=== PATIENT | male | born 2000 | race Caucasian/White ===

== ENCOUNTER 2022-11-15 12:36 | Observation (INO) | payer BC, SELFPAY ==
[2022-11-15] VITALS (13 sets, daily range): BP systolic 126–162; BP diastolic 67–115; PULSE 59–104; RESP 12–20; TEMP 36.5–37.1; O2SAT 93–99; BMI 31.6
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
--- NOTE | 2022-11-15 13:25 | DI.RAD_ITS ---
Exam(s) XR FOREARM RT XR ELBOW RT COMPLETE EXAM: XR FOREARM RT CLINICAL HISTORY: trauma. TECHNIQUE: 2D digital imaging was performed. Two views. COMPARISON: CR XR ELBOW RT COMPLETE from 11/15/2022 FINDINGS: BONES: There are transverse for fractures of the proximal 3rd of the radius and ulna. There is sever e displacement, more than a shaft with as well as angulation. Additional nondisplaced fractures seen in the mid shaft of the ulna. No bony destructive lesion is seen. Visualized portion of elbow and w rist joints are unremarkable. SOFT TISSUE: Swelling and skin debris. IMPRESSION: Displaced fractures of the proximal 3rd of the radius and ulna. DATA REPOSITORY: RADIATION DOSE DELIVERED:
[2022-11-15] MEDS: Ondansetron 4 MG/2 ML VIAL IVP (13:38)
[2022-11-15] MEDS: MORPHine 10 MG/ML VIAL 4 MG IVP (13:38)
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
--- NOTE | 2022-11-15 14:45 | DI.RAD_ITS ---
Exam(s) XR FOREARM RT EXAM: XR FOREARM RT CLINICAL HISTORY: Closed fracture of rt forearm TECHNIQUE: 2D and realtime digital imaging was performed. CONTRAST MATERIAL: Refer to procedure report. COMPARISON: CR XR ELBOW RT COMPLETE from 11/15/2022 FINDINGS: Fluoroscopy was provided for Dr. Brownlee during the performance of a reduction and internal fixation of the radial and ulnar fractures. Please refer to the procedure report for complete details. Ka,r=0.28 mGy IMPRESSION: RADIATION DOSE DELIVERED:
--- NOTE | 2022-11-15 14:46 | W.ANESPRE ---
General Info Date of Service Date Performed: 11/15/22 Height: 5 ft 8 in Weight: 94.347 kg Body Mass Index (BMI): 31.6 Surgical Procedure: Operation Date: 11/15/22 15:10 Proposed Procedure Side Surgeon p Wrist ORIF Forearm Akash Brownlee MD Meds Allergies and Home Medications Allergies Allergy/AdvReac Type Severity Reaction Status Date / Time No Known Allergies Allergy Unverified 11/15/22 12:51 Current Visit Medications: Current Medications Generic Name Dose Route Start Last Admin Trade Name Freq PRN Reason Stop Dose Admin Morphine Sulfate 4 mg 11/15/22 13:25 11/15/22 13:38 Morphine 10 Mg/Ml Vial IVP 4 mg DIRECTED PRN Administration PFSH Active Problems Active Problems: Problem Status Onset Code Closed fracture of right forearm 11/15/22 S52.91XA Closed left forearm fracture S52.92XA Abrasion of forearm, right S50.811A Vital Signs and Lab Results Vital Signs Most Recent Vital Signs in EMR: Most Recent Vital Signs Temp Pulse Resp BP Pulse Ox 36.9 C 59 L 20 162/115 H 93 11/15/22 12:36 11/15/22 12:36 11/15/22 12:36 11/15/22 12:36 11/15/22 12:36 Lab Results Blood Type / Crossmatch: No Data to Display Complete Blood Count: No Data to Display Complete Metabolic Panel: No Data to Display Liver Function Panel: No Data to Display Coagulation Panel: No Data to Display Cardiac Panel: No Data to Display Arterial Blood Gas: No Data to Display Venous Blood Gas: No Data to Display Pancreas Panel: No Data to Display Thyroid Panel: No Data to Display Infectious Disease: No Data to Display Blood Cultures: No Data to Display Toxicology Panel: No Data to Display Anesthesia Assessment and Plan Anesthesia History Personal History: No History of General Anesthesia Family History: No Family History of Anesthesia Complications Exercise Tolerance Exercise Tolerance: Metabolic Equivalents>4 Pertinent Negatives Pertinent Negatives: No Symptoms of GERD, No Major Cardiovascular Symptoms or Complaints and No Major Pulmonary Symptoms or Complaints Cardiac & Pulmonary Exam Cardiac Exam: Normal S1/S2 Heart Sounds Pulmonary Exam: Clear Bilateral Breath Sounds Implantable Cardiac Device Does patient have a Pacemaker or an ICD?: No Airway Exam Known Difficult Airway: No Mallampati Class: 1 Mouth Opening: Normal (> 3cm) Thyromental Distance: Greater than 3 cm Neck Range of Motion: Full ROM Neck Circumference: Normal Teeth Condition: Normal Dentition ASA Classification ASA Score: ASA 1 Emergency Case?: Yes NPO Status NPO Status: NPO Clear Liquids>2 hours and Full Stomach Anesthesia Plan Resuscitation Status: Full Code Anesthesia Technique: General Anesthesia Airway Planned: Endotracheal Tube Monitors Used: Standard Monitors and SedLine
[2022-11-15] MEDS: HYDROmorphone 2 MG/ML SYR 1 MG IVP (14:53)
[2022-11-15] MEDS: Lactated Ringers 1,000 ML 50 ML IV ×2 (15:25→16:05)
[2022-11-15] MEDS: ceFAZolin 2 GM/50 ML BAG 100 GM (16:05)
--- NOTE | 2022-11-15 16:08 | W.EDPROG ---
Date of service: 11/15/22 Time of Service: 16:08 Medical Decision Making I was asked to evaluate patient in the OR given concern for blood in G-tube output. Patient noted to have benign abdomen prior to initiation of procedure both by ED physician Dr. Botello and Dr. Brownlee. Patient noted to have no abdominal trauma. G-tube placed after intubation in the OR with notable pink output. Hemoccult testing performed on gastric output and negative. FAST exam was performed at request of Dr. Brownlee in the OR and negative for free fluid. I do not suspect gastric bleeding given Gastroccult negative and benign abdomen. Discharge Plan Disposition Condition: Stable Discharge Details Chief Complaint: Trauma Clinical Impression: Closed left forearm fracture, Abrasion of forearm, right Attending Provider: Akash Brownlee Primary Care Provider: Unknown,Unknown ED Provider: Julissa Botello
[2022-11-15] MEDS: Hydrogen Peroxide 3% 480 ML BTL (17:03)
--- NOTE | 2022-11-15 19:33 | W.PM.PROGNOT ---
Date of Service Date of service: 11/15/22 Time of Service: 19:33 Assessment and Plan Assessment and plan (1) Closed fracture of shaft of right radius and ulna: Status: Acute Assessment and plan: 21-year-old male postop day #0 status post right radius and ulnar shaft fracture ORIF with fasciotomies done for impending compartment syndrome Comfortable, still waking up from anesthesia, demonstrates weakly intact flexion extension of all digits. No distress. Dressing clean. Sensation intact with vaguely described paresthesias globally about the hand. Strict elevation right forearm at or above the level of the heart. Gentle range of motion wrist, hand, and elbow. Multimodal pain control as ordered. DVT prophylaxis with bilateral SCDs and ambulation. Anticipate discharge home after 24 hours of compartment monitoring, postoperative antibiotics, and anticipate dressing change tomorrow for drainage as incisions were only able to be closed widely. Discussed with patient's partner and mother (2) Traumatic compartment syndrome of right upper extremity: Status: Acute Objective Last Vital Signs Temp 98.4 F 11/15/22 12:36 Pulse 59 L 11/15/22 12:36 Resp 20 11/15/22 12:36 BP 162/115 H 11/15/22 12:36 Pulse Ox 93 11/15/22 12:36 PAWSS Have you Been Recently Intoxicated or Drunk Within the Last 30 days?: Yes Have you Ever Experienced Previous Episodes of Alcohol Withdrawal?: No Have you ever Experienced Withdrawal Seizures?: No Have you ever Experienced Delirium Tremens(DT)s?: No Have you ever undergone Alcohol Rehabilitation Treatment (i.e, inpt ot outpatient treatment programs)?: No Have you ever Experienced Blackouts?: No Have you ever Combined Alcohol with other Downers within the last 90 days?: No Have you ever Combined Alcohol with any other Substance of Abuse during the last 90 days?: No Result: 1 Time Spent with Patient Time Spent with Patient: <25 minutes Time was spent: indepentently interpreting results and counseling the patient
--- NOTE | 2022-11-15 19:38 | ROE_ITS ---
Date of service: 11/15/22 Time of Service: 16:00 Operative Note Operative Note DATE OF PROCEDURE: 11/15/22 PRE-OP DIAGNOSIS: 1. Right radius and ulnar shaft fractures 2. Impending forearm compartment syndrome POST-OP DIAGNOSIS: same PROCEDURE: 1. Right radius and ulnar shaft ORIF, CPT#94446 2. Decompressive fasciotomy: flexor and extensor compartments, CPT #98909 SURGEON: Akash Brownlee CAPONIZER: Lucila Teran ANESTHESIA TYPE: Local By Surgeon and General LMA/ETT Refer to Anesthesia Record ESTIMATED BLOOD LOSS: 20 PATHOLOGY: none sent TOURNIQUET TIME: 0 COMPLICATIONS: None Patient was transported to: PACU Patient's condition: stable Implants: Synthes 3.5mm LCP 6-hole radius, 10-hole ulna with 3.5mm cortex screws Indications: Please see complete medical record for details. Findings: Impending volar forearm compartment syndrome Procedure Description: In the operating room, general anesthesia was induced. Trauma work-up was compl eted with ultrasound fast exam done by Dr. Miller and gastric contents tested for blood, both test negative. Belly was soft. Pelvis stable. The patient was positioned supine on the operating room table. All bony prominences were well- padded. Preoperative antibiotics were administered. The right forearm was prepped and draped in the usual sterile fashion. The correct patient, procedure, and side of the procedure were all verified prior to incision. The right forearm swelling had been increasing dramatically. Especially the proximal volar compartments were now somewhat tense. The patient demonstrated significant discomfort based on vital signs and anesthetic requirement. The volar approach to the radius was taken. On incising the volar fascia, the flexor muscles essentially herniated out of the fascial rent. They were significantly swollen. The skin incision was extended appropriately proximally and distally and the decompressive fasciotomy completed with Metzenbaums scisso rs with the majority of the pathology being at and proximal to the fracture site superficially and deep. There was no necrotic muscle. The dorsal and mobile wad compartments were compressible so the volar surgery with continued. The radial shaft had partially lacerated the flexor pronator teres probably. The radial artery and radial sensory nerve were carefully mobilized and retracted radially. Care was taken to avoid any radial retractors around the proximal radial shaft to avoid the PIN. The forearm was maintained in the supinated position for the majority of the work. The bone ends were identified and reduced with bone clamps. There was a nice fracture nelson and the obliquity was secured with a lag screw. The patient's vital signs and comfort had improved dramatically following compartment release and provisional denominational of forearm length and stability. An appropriately length plate was chosen and slightly contoured to match the radial bow. The lag screw removed and the plate placed on the volar aspect of the radial shaft, secured and centered with bone clamps, and the lag screw replaced with a slightly longer length. An additional cortex screw was placed proximally and distally to secure the plate to the bone. Visual inspection and fluoroscopy used to confirm appropriate placement reduction, and the remainder of the screw holes filled to complete the construct . An initial most proximal screw was exchanged for shorter version Norma plate was more secured to the bone. The direct ulnar approach was then taken to the segmental ulnar shaft fractures. The dorsal fascia was opened and released appropriately far proximal to distal as needed to complete compartment release as well as fixate the multiple aspects of this fracture. Muscle was elevated off the dorsal aspect of the bone. The proximal fracture site was comminuted, multiple butterfly and small pieces were incorporated with small bone clamps and the reduction was quite good. The distal fracture remained nondisplaced. An appropriately long plate was selected and again slightly contoured to match patient anatomy. It was provisionally secured to the dorsal aspect of the ulna with clamps and then with cortex screws starting between and then proximal and distal to the different fracture sites. Provisional inspection and fluoroscopy confirmed appropriate placement and reduction. An appropriate number of bicortical cortex screws were placed for a total of 3 proximal to the most proximal fracture, 2 between the fractures, and 2 most distal. Final fluoroscopy was obtained showing appropriate screw lengths, plate placement, and excellent fracture reduction alignment. Radial artery remained protected as did the radial sensory nerve. The dorsal compartments were moderately swollen. The volar muscle had improved with elevation during the ulna surgery as well as with stabilization and denominational of length. Options were considered for wound VAC placement and skin grafting versus attempted closure. Patient vitals showed good comfort. Given young age, decision was made to attempt primary closure to avoid undue wounds. Compartments were left open. The volar subcutaneous tissue was closed using 2-0 Monocryl buried interrupted and skin with running 3-0 horizontal mattress with central escape stitch as needed for removal or if to tight and painful during postoperative monitoring. The skin was reasonably approximated with about a 1 cm overall. The dorsal incision was similarly closed with a relatively loose but reasonable approximation. Compartments were inspected and compressible. Muscle was not tense during the superficial layer closure. Radial pulse was readily palpable. Xeroform applied over both incisions as well as the volar proximal road rash skin abrasions. Gauze over the top followed by sterile soft roll and a very gently placed a 6 loose bandage from the hand to the arm. The patient awoke from anesthesia without complication and was transferred to the recovery room in a stable condition.
--- NOTE | 2022-11-15 19:38 | W.PM.DS.N ---
Date of service: 11/16/22 Time of Service: 14:39 DS: Diagnosis Discharge Diagnosis (1) Closed fracture of shaft of right radius and ulna: Status: Acute (2) Traumatic compartment syndrome of right upper extremity: Status: Acute Discharge Plan Disposition Patient Disposition: Home Condition: Stable Discharge Details Reason For Visit: Right Radius & Ulna Shaft FXs Admit Date/Time: 11/15/22 19:21 Admit Provider: Akash Brownlee Attending Provider: Akash Brownlee Primary Care Provider: Unknown,Unknown Home Meds and New Rx's Prescriptions: New aspirin 81 mg Tablet,Delayed Release (Dr/Ec) 81 mg PO DAILY 7 Days Qty: 7 0RF naproxen 250 mg Tablet 250 - 500 mg PO BID PRN PRN (Reason: for moderate to severe pain) Qty: 40 0RF oxycodone 5 mg Tablet 5 - 15 mg PO Q4H PRN MDD 30mg PRN (Reason: for moderate to severe pain) Qty: 30 0RF oxycodone [OxyContin] 10 mg Tablet,Oral Only,Ext.Rel.12 Hr 10 mg PO Q12H 3 Days Qty: 6 0RF Discharge Instructions Instructions: Arm Fracture in Adults (DC), Compartment Syndrome (DC), ORIF of an Arm Fracture (DC) Additional Instructions: Surgery 11/15/22 Right radius and ulnar shaft fracture ORIF with fasciotomies done for impending compartment syndrome Activity: Strict elevation right forearm at or above the level of the heart to minimize swelling. Support on pillows. Gently encourage increasing range of motion elbow, wrist, and hand fingers to prevent stiffness. Nonweightbearing right forearm. Prescriptions: Aspirin 81 mg take 1 daily to prevent a blood clot for 1 week Naproxen 250 mg take 1-2 every 12 hours with a meal as needed for moderate pain Oxycodone immediate release 5 mg take 1-3 every 4-6 hours as needed for severe pain Oxycodone extended release 10 mg take 1 every 12 hours for up to 3 days to control pain You may use [id number] Tylenol (acetaminophen) as needed for mild pain. These pain medications may be taken all at once or in different combinations as needed. Also, recommend Colace (docusate) as a stool softener as surgery and pain medicine cause constipation. You may try njop-aah-ezsyudk diphenhydramine (Benadryl) 25-50 mg nightly as a sleep aid Dressings: Please change dressing daily with Xeroform, gauze, and gently wrap/secured with Misha bandages. Follow-up: 10-[address] Brownlee You may take off the leg compression stockings this evening at home. You may also leave them on a few days longer if you have a history of leg swelling or edema. Let us know right away if you develop any redness, drainage, fevers, chest pain, or trouble breathing. Do not drink alcohol or drive for at least 24 hours after anesthesia. Please call the office during business hours with any questions or concerns. Stand Alone Forms: Nursing Discharge Form Referrals: Akash Brownlee MD [ [facility] ST[facility]FF [facility]YSICIAN] - 11/21/22 3:00 pm Activity:: Activity as Tolerated Equipment/Supplies:: Dressing supplies Diet:: Normal Diet Discharge Orders Discharge Orders: Discharge Order (Routine); Ordered 11/16/22 Ordered By: Lucila Teran DS: Summary Time Spent with Patient providing and/or coordinating discharge services: Less than 30 minutes Status at Discharge Functional status at discharge: independent ambulation Overall status at discharge: patient is progressing back to baseline Mental Status: mental status grossly normal Speech and Movement: speech and movement normal Mood: congruent mood Affect: normal affect Exam Narrative Exam Narrative: Patient resting in bed with no signs of acute distress. Right forearm resting on pillow with dressing intact. Dressing was taken down. Abrasion of the antecubital fossa and volar surface of the proximal forearm. Incisions without any signs of infection. Compartments compressible. Patient participates in dressing change with no discomfort. Demonstrates active motion of the wrist, elbow, and shoulder. Motor function of the median, ulnar, and radial nerves, intact. Sensation intact to light touch in the median and ulnar nerve distributions. Altered sensation improving in the radial nerve distribution. 2+ radial pulse. Psych Mental Status: mental status grossly normal Speech and Movement: speech and movement normal Mood: congruent mood Affect: normal affect DS: Data Vitals/I&O Vitals and I&O: Vital Signs Temperature 98.4 F 11/15/22 12:36 Pulse 59 L 11/15/22 12:36 Respiratory Rate 20 11/15/22 12:36 Respiratory Effort Normal, Non-Labored 11/15/22 12:48 Respiratory Depth Normal 11/15/22 12:44 Blood Pressure 162/115 H 11/15/22 12:36 Pulse Oximetry 93 11/15/22 12:36 Pain Level 8 11/15/22 14:53 Intake & Output 11/14/22 11/15/22 11/15/22 23:59 11:59 23:59 Intake Total 1600 / 1600 Output Total 400 / 400 Balance 1200 / 1200 Weight 208 lb Intake: IV 1600 / 1600 Output: Urine 400 / 400 Other: Urine Color Yellow Urine Appearance Clear PFSH All Active Problems (Updated 11/15/22 @ 19:35 by Akash Brownlee MD) Traumatic compartment syndrome of right upper extremity (Acute) Closed fracture of shaft of right radius and ulna (Acute 11/15/22) Abrasion of forearm, right (Acute) Social History Smoking/Tobacco Use Status: Never Smoking risk assessment performed?: Yes Alcohol Intake: current Alcohol Intake frequency: a few times a month Alcohol type: hard liquor Drug use: Occasionally Substance use type: marijuana Do you feel safe at home: Yes Do you feel safe in your relationship?: Yes Time Spent with Patient Time Spent with Patient: <45 minutes Time was spent: obtaining and/or reviewing separately otained hiistory, ordering medications,tests, procedures, counseling the patient and care coordination
--- NOTE | 2022-11-15 20:26 | W.ANESPOSTOP ---
Postoperative Evaluation Date, Time and Location Date Performed: 11/15/22 Time Performed: 20:26 Patient Location: PACU Vital Signs Most Recent Imported Vital Signs: Most Recent Vital Signs Temp Pulse Resp BP Pulse Ox 36.5 C 77 12 126/67 97 11/15/22 20:17 11/15/22 20:17 11/15/22 20:17 11/15/22 20:17 11/15/22 20:17 Pain Score Most Recent Pain Score: Most Recent Pain Score Pain Level 0 11/15/22 20:24 Pain score in PACU Assessment Mental Status: Arousable with meaningful communication Airway and Respiratory Function: Patent airway with normal (patient baseline) respiratory exam Cardiovascular Function: Hemodynamically Stable Hydration Status: Adequately Hydrated Nausea & Vomiting: No Nausea or Vomiting Pain: Pt. Denies Any Pain Peripheral Nerve Block: Patient did not receive a nerve block
--- NOTE | 2022-11-15 20:28 | W.ANESPOSTOP ---
Postoperative Evaluation Date, Time and Location Date Performed: 11/15/22 Time Performed: 20:23 Patient Location: PACU Vital Signs Most Recent Imported Vital Signs: Most Recent Vital Signs Temp Pulse Resp BP Pulse Ox 36.5 C 77 12 126/67 97 11/15/22 20:17 11/15/22 20:17 11/15/22 20:17 11/15/22 20:17 11/15/22 20:17 Most Recent Vital Signs Temp Pulse Resp BP Pulse Ox 36.5 C 77 12 126/67 97 11/15/22 20:17 11/15/22 20:17 11/15/22 20:17 11/15/22 20:17 11/15/22 20:17 Pain Score Most Recent Pain Score: Most Recent Pain Score Pain Level 0 11/15/22 20:23 Assessment Mental Status: Arousable with meaningful communication Airway and Respiratory Function: Patent airway with normal (patient baseline) respiratory exam Cardiovascular Function: Hemodynamically Stable Hydration Status: Adequately Hydrated Nausea & Vomiting: No Nausea or Vomiting Pain: Pt. Denies Any Pain Peripheral Nerve Block: Patient did not receive a nerve block
[2022-11-15] MEDS: ceFAZolin 1 GM/50 ML BAG IVPB (21:00)
[2022-11-15] MEDS: Naproxen 250 MG TAB PO (21:28)
[2022-11-15] MEDS: MORPHine 10 MG/ML VIAL IVP ×2 (21:29→23:50)
[2022-11-15] MEDS: oxyCODONE 5 MG TAB PO (22:29)
[2022-11-16 00:03] VITALS: O2SAT 94
[2022-11-16 01:03] VITALS: O2SAT 96
[2022-11-16] MEDS: MORPHine 10 MG/ML VIAL IVP ×5 (02:19→14:13)
[2022-11-16] MEDS: oxyCODONE 5 MG TAB PO ×3 (04:06→16:05)
[2022-11-16] MEDS: ceFAZolin 1 GM/50 ML BAG IVPB ×2 (04:52→12:05)
[2022-11-16] MEDS: Naproxen 250 MG TAB PO (06:50)
[2022-11-16] MEDS: Normal Saline Flush 10 ML SYR IVP ×3 (07:55→16:42)
[2022-11-16] MEDS: Lactated Ringers 1,000 ML 30 ML IV (10:12)
[2022-11-16 11:19] VITALS: BP 116/67; PULSE 67; TEMP 36.8; O2SAT 93
[2022-11-16] MEDS: oxyCODONE-CR 10 MG TABCR PO (12:06)
[2022-11-16] MEDS: Acetaminophen 500 MG TAB 1000 MG PO (16:04)
[2022-11-16] MEDS: Ondansetron 4 MG/2 ML VIAL IVP (16:42)
== END 2022-11-16 17:57 | disposition home or self-care (01) ==
LOC: ER 14:37 → DSU 15:15 → SUR 15:25 → MS 20:41
PROVIDERS: Admitting Provider Student in an Organized Health Care Education/Training Program; Emergency Provider Emergency Medicine Emergency Medical Services; Visit Provider Student in an Organized Health Care Education/Training Program
PROC: (CPT 25575; principal; 2022-11-15 15:00)
DX: S52.321A Displaced transverse fracture of shaft of right radius, initial encounter for closed fracture (principal); S52.26 Segmental fracture of shaft of ulna; V86.65XA Passenger of 3- or 4- wheeled all-terrain vehicle (ATV) injured in nontraffic accident, initial encounter; T79.A11A Traumatic compartment syndrome of right upper extremity, initial encounter
CPT/HCPCS: 25575; 25024; 96361; 96365; 96366; 96374; 96375; 96376; 99285; 73080; 73090; G0378; J0131; J0690; J1100; J1170; J2001; J2250; J2270; J2405; J2704; J3010; J3475

== ENCOUNTER 2022-11-28 15:32 | Outpatient (CLI) | payer BC, SELFPAY ==
--- NOTE | 2022-11-28 15:00 | DI.RAD_ITS ---
Exam(s) XR FOREARM RT EXAM: XR FOREARM RT INDICATION: FOREARM F/U. COMPARISON: XA XR FOREARM RT from 11/15/2022 TECHNIQUE: 2D digital imaging was performed. Two views. FINDINGS: Fixation plates are again noted in the mid radius and ulna. No change in fracture or hardware alignm ent. Soft tissue swelling remains present. DATA REPOSITORY: RADIATION DOSE DELIVERED:
== END 2022-11-28 15:33 | disposition home or self-care (01) ==
LOC: DIORS 15:33
PROVIDERS: Visit Provider Student in an Organized Health Care Education/Training Program
DX: S52.26 Segmental fracture of shaft of ulna (principal); S52.321D Displaced transverse fracture of shaft of right radius, subsequent encounter for closed fracture with routine healing; X58.XXXD Exposure to other specified factors, subsequent encounter
CPT/HCPCS: 73090

== ENCOUNTER 2022-11-29 11:43 | Day surgery (SDC) | payer BC, SELFPAY ==
[2022-11-29] VITALS (8 sets, daily range): BP systolic 92–141; BP diastolic 28–75; PULSE 55–81; RESP 16–21; TEMP 36.4–37.2; O2SAT 95–98; BMI 30.6
--- NOTE | 2022-11-29 07:37 | PDOC.DSDIS_ITS ---
Date of service: 11/29/22 Time of Service: 17:00 Discharge Plan Disposition Patient Disposition: Home Discharge Details Attending Provider: Akash Brownlee Primary Care Provider: Tamanna,Local Home Meds and New Rx's Prescriptions: New naproxen 250 mg tablet 250 - 500 mg PO BID PRNQty: 40 0RF Rx Instructions: take with a meal oxycodone 5 mg tablet 5 - 10 mg PO Q4H MDD 30 mg PRN (Reason: moderate to severe pain) Qty: 18 0RF Bio-K plus 50 billion cell capsule,delayed release(DR/EC) 1 cap PO DAILY 14 Days Qty: 14 0RF Continued naproxen 250 mg Tablet 250 - 500 mg PO BID PRN PRN (Reason: for moderate to severe pain) Qty: 40 0RF acetaminophen 500 mg Tablet 500 - 1,000 mg PO DIRECTED escitalopram oxalate 10 mg tablet 10 mg PO DAILY Patient Comments: TAKE 1 TABLET BY MOUTH EVERY DAY Discontinued acetaminophen [Tylenol] 325 mg tablet 325 mg PO ONCE PRN Discharge Instructions Additional Instructions: Surgery: Right forearm fasciotomies secondary wound closure Activity: Nonweightbearing right upper extremity. Recommend elevation to minimize swelling discomfort. Encourage increasing range of motion about the elbow wrist hand and fingers to prevent stiffness and increase circulation. Use removable wrist brace to prevent wrist drop. Should remove multiple times each day and perform active assisted and active wrist extension as instructed in the office. A paper hand therapy prescription will be provided to start ideally next week. Prescriptions: Naproxen 250 mg take 1-2 every 12 hours with a meal as needed for moderate pain Oxycodone 5 mg take 1-2 every 4-6 hours as needed for severe pain You may use wrka-tst-zlblcwy Tylenol (acetaminophen) as needed for mild pain. These pain medications may be taken all at once or in different combinations as needed. Also, recommend Colace (docusate) as a stool softener as surgery and pain medicine cause constipation. You may try zzpv-svi-gltfjbf diphenhydramine (Benadryl) 25-50 mg nightly as a sleep aid Dressings: Loosen/adjust Misha bandage as needed for comfort. Keep entire dressing in place for 5 days. May then remove gauze, remove Xeroform, but leave the Steri-Strips in place until follow-up. Cover the incisions with wide Band- Aids or leave exposed to air. May apply bacitracin to road rash. May shower after 7 days. Follow-up: 10-[address] Brownlee or with a local orthopedic surgeon. You may take off the leg compression stockings this evening at home. You may also leave them on a few days longer if you have a history of leg swelling or edema. Let us know right away if you develop any redness, drainage, fevers, chest pain, or trouble breathing. Do not drink alcohol or drive for at least 24 hours after anesthesia. Please call the office during business hours with any questions or concerns. Discharge Orders Discharge Orders: Discharge Order (Routine); Ordered 11/29/22 Ordered By: Akash Brownlee DS: Diagnosis Discharge Diagnosis (1) Traumatic compartment syndrome of right upper extremity: Status: Acute (2) Closed fracture of shaft of right radius and ulna: Status: Acute
--- NOTE | 2022-11-29 07:38 | ROE_ITS ---
Date of service: 11/29/22 Time of Service: 15:00 Operative Note Operative Note DATE OF PROCEDURE: 11/29/22 PRE-OP DIAGNOSIS: Right forearm fasciotomies with partial wound closure POST-OP DIAGNOSIS: same PROCEDURE: Right forearm secondary wound closure, Radial fasciotomy, CPT# 54637 and Ulnar fasciotomy, CPT# 05160 SURGEON: Akash Brownlee ANESTHESIA TYPE: Local By Surgeon and General LMA/ETT Refer to Anesthesia Record ESTIMATED BLOOD LOSS: 5 COMPLICATIONS: None Patient was transported to: PACU Patient's condition: stable Indications: Please see complete medical record for details. Procedure Description: In the operating room, general anesthesia was induced. The patient was positioned supine on the operating room table. All bony prominences were well- padded. Preoperative antibiotics were administered. The left forearm was prepped and draped Betadine scrub and then Betadine paint. The correct patient, procedure, and side of the procedure were all verified prior to incision. The forearm had soft compartments. Radial pulse was 2+. The prior radial and ulnar fasciotomy incisions were inspected. There was excellent granulation tissue base with about a 1 cm margin of widening between skin edges. No signs of infection. The nylon retention sutures were removed. The wounds were each thoroughly scrubbed with Betadine soaked sponges. Suture removal instruments, gloves, and drapes were passed off and new ones used for the remainder of the case. Starting with the radial wound, which measured about 17 cm in length with areas of about 5 mm to 15 mm widening, a 15 blade was used to lightly debride and resect the central subcutaneous tissue bed as well as mobilize the soft tissue margins and allow for subcuticular skin edge reapproximation without much tension. This debridement and soft tissue mobilization was repeated for the ulnar mood, which measured about 14 cm in length and had areas of about 8-18 mm widening. Both freshened wounds were irrigated with normal saline. Starting with the radial wound, a 3-0 Monocryl running subcuticular stitch was used to close the skin edges. Next, 3-0 Monocryl running subcu stitch was also used to close the ulnar wound. Both wounds closed very nicely without concerns of skin tension or nonviable tissue. The forearm was washed with saline and then dried. Hemostasis was appropriate. Steri-Strips were applied across the ulnar wound. They were also applied across the radial wound avoiding the medium to large areas of skin abrasions centrally and proximally toward the antecubital crease. Xeroform was applied over the length of both closed wounds and wider places placed over the proximal volar radial forearm skin abrasion and the antecubital elbow. Gauze was placed over both wounds, sterile soft roll wrap to secure the sterile dressing. Gentle compressive Misha bandage was applied from the hand wrist and forearm and then from the forearm up past the elbow to the arm. Cock up wrist brace was then fit over the bandage on the wrist. The patient awoke from anesthesia without complication and was transferred to the recovery room in a stable condition.
--- NOTE | 2022-11-29 13:11 | W.ANESPRE ---
General Info Date of Service Date Performed: 11/29/22 Height: 5 ft 9 in Weight: 94 kg Body Mass Index (BMI): 30.6 Surgical Procedure: Operation Date: 11/29/22 14:40 Proposed Procedure Side Surgeon p Forearm Complex Wound Closure Right Akash Brownlee MD Meds Allergies and Home Medications Allergies Allergy/AdvReac Type Severity Reaction Status Date / Time No Known Allergies Allergy Unverified 11/29/22 13:35 Home Medication Medication Instructions Recorded naproxen 250 mg tablet 250 - 500 mg PO BID PRN PRN for 11/16/22 moderate to severe pain #40 tabs L. acidophilus,casei,rhamnosus 50 1 cap PO DAILY 14 days #14 caps 11/29/22 billion cell capsule,delayed release (Bio-K plus) acetaminophen 500 mg tablet 500 - 1,000 mg PO DIRECTED 11/29/22 escitalopram oxalate 10 mg tablet 10 mg PO DAILY 11/29/22 naproxen 250 mg tablet 250 - 500 mg PO BID PRN #40 tabs 11/29/22 oxycodone 5 mg tablet 5 - 10 mg PO Q4H PRN moderate to 11/29/22 severe pain #18 tabs Current Visit Medications: Current Medications Generic Name Dose Route Start Last Admin Trade Name Freq PRN Reason Stop Dose Admin Ringer's Solution 1,000 mls @ 30 mls/hr 11/29/22 06:00 IV 11/29/22 16:00 INFUSION ANGEL Cefazolin Sodium/Dextrose 2 gm in 50 mls @ 100 mls/hr 11/29/22 06:00 Ancef Duplex IVPB 11/29/22 23:59 PREOP [facility] IV Miscellaneous Supplies 1 each 11/29/22 06:00 Iv Access IV 11/29/22 23:59 DIRECTED ANGEL Oxycodone HCl 0 mg 11/29/22 07:08 Oxycodone 5 Mg Tab PO 12/29/22 07:07 Q3H PRN PRN Pain Sodium Chloride 0 ml 11/29/22 06:00 Normal Saline Flush 10 Ml Syr IV 11/29/22 23:59 PRN PRN Sodium Chloride 0 ml 11/29/22 06:00 Normal Saline 10 Ml Vial IJ 11/29/22 23:59 DIRECTED PRN Sterile Water 0 ml 11/29/22 06:00 Water,Injection,Sterile 10 Ml Vial IJ 11/29/22 23:59 DIRECTED PRN PFSH Active Problems Active Problems: Problem Status Onset Code Abrasion of forearm, right S50.811A Closed fracture of shaft of right radius and ulna 11/15/22 S52.301A, S52.201A Traumatic compartment syndrome of right upper extremity T79.A11A Medical History Medical History Severe anxiety Surgical History Surgical History Hilbert teeth extracted Tobacco Smoking/Tobacco Use Status: Never Alcohol Alcohol Intake: former Substance Use Substance use: Occasionally Substance use type: marijuana Details: last use t-, vape Vital Signs and Lab Results Vital Signs Most Recent Vital Signs in EMR: Most Recent Vital Signs Temp Pulse Resp BP Pulse Ox 36.7 C 81 20 141/68 H 98 11/29/22 12:10 11/29/22 12:10 11/29/22 12:10 11/29/22 12:10 11/29/22 12:10 Lab Results Blood Type / Crossmatch: No Data to Display Complete Blood Count: No Data to Display Complete Metabolic Panel: No Data to Display Liver Function Panel: No Data to Display Coagulation Panel: No Data to Display Cardiac Panel: No Data to Display Arterial Blood Gas: No Data to Display Venous Blood Gas: No Data to Display Pancreas Panel: No Data to Display Thyroid Panel: No Data to Display Blood Cultures: No Data to Display Toxicology Panel: No Data to Display Anesthesia Assessment and Plan Anesthesia History Personal History: No History of Anesthesia Complications Family History: No Family History of Anesthesia Complications Exercise Tolerance Exercise Tolerance: Metabolic Equivalents>4 Pertinent Negatives Pertinent Negatives: No Symptoms of GERD, No Major Cardiovascular Symptoms or Complaints, No Major Pulmonary Symptoms or Complaints and No History of CVA/TIA Cardiac & Pulmonary Exam Cardiac Exam: Normal S1/S2 Heart Sounds Pulmonary Exam: Clear Bilateral Breath Sounds Implantable Cardiac Device Does patient have a Pacemaker or an ICD?: No Airway Exam Known Difficult Airway: No Mallampati Class: 1 Mouth Opening: Normal (> 3cm) Thyromental Distance: Greater than 3 cm Neck Range of Motion: Full ROM Neck Circumference: Normal Teeth Condition: Normal Dentition ASA Classification ASA Score: ASA 2 Emergency Case?: No NPO Status NPO Status: NPO Clears >2 hours, Solids >8 hours Anesthesia Plan Resuscitation Status: Full Code Anesthesia Technique: General Anesthesia Airway Planned: Natural Airway Monitors Used: Standard Monitors Preoperative Comments:: Preop Versed for severe anxiety
[2022-11-29] MEDS: Lactated Ringers 1,000 ML 30 ML IV (13:15)
[2022-11-29] MEDS: ceFAZolin 2 GM/50 ML BAG IVPB (14:44)
--- NOTE | 2022-11-29 17:05 | W.ANESPOSTOP ---
Postoperative Evaluation Date, Time and Location Date Performed: 11/29/22 Time Performed: 17:05 Patient Location: Day Surgery Unit Vital Signs Most Recent Imported Vital Signs: Most Recent Vital Signs Temp Pulse Resp BP Pulse Ox 36.4 C L 60 16 120/69 96 11/29/22 16:47 11/29/22 16:47 11/29/22 16:47 11/29/22 16:47 11/29/22 16:47 Pain Score Most Recent Pain Score: Most Recent Pain Score Pain Level 5 11/29/22 16:47 Assessment Mental Status: Awake (Alert & Oriented to Patient Baseline) Airway and Respiratory Function: Patent airway with normal (patient baseline) respiratory exam Cardiovascular Function: Hemodynamically Stable Hydration Status: Adequately Hydrated Nausea & Vomiting: No Nausea or Vomiting Pain: Pain is tolerable per patient Peripheral Nerve Block: Patient did not receive a nerve block
[2022-11-29] MEDS: oxyCODONE 5 MG TAB PO (17:07)
== END 2022-11-29 17:40 | disposition home or self-care (01) ==
PROVIDERS: Visit Provider Student in an Organized Health Care Education/Training Program
PROC: (CPT 13160; principal; 2022-11-29 14:30)
DX: T79.A11A Traumatic compartment syndrome of right upper extremity, initial encounter (principal); S52.302A Unspecified fracture of shaft of left radius, initial encounter for closed fracture; S52.202A Unspecified fracture of shaft of left ulna, initial encounter for closed fracture; X58.XXXA Exposure to other specified factors, initial encounter
CPT/HCPCS: 13160 ×2; J0690; J1100; J1885; J2001; J2250; J2405; J2704